=== PATIENT | female | born 1955 | race Caucasian/White ===

== ENCOUNTER → 2016-08-28 | Day surgery (SDC) | payer MEDICAID, MEDICARE ==
[~2016-08-28] MED LIST: LIDOCAINE 2% JELLY 5 ML TUBE ONE
== END ==
LOC: END 09:20
PROVIDERS: ATTEND Surgery
PROC: 4A0B7BZ Measurement of Gastrointestinal Pressure, Via Natural or Artificial Opening (ICD-10-PCS; principal; 2016-08-28)
PROC: 4A0B78Z Measurement of Gastrointestinal Motility, Via Natural or Artificial Opening (ICD-10-PCS; 2016-08-28)
DX: K21.9 Gastro-esophageal reflux disease without esophagitis (principal); R10.13 Epigastric pain
CPT/HCPCS: 91010; 91034